=== PATIENT | female | born 1995 | race Caucasian/White ===

== ENCOUNTER 2018-03-29 18:43 | Emergency (ER) | payer SELFPAY ==
[~2018-03-29] VITALS: Ht 160 cm; Wt 52.3 kg
[~2018-03-29 18:43] MED LIST: AMOXICILLIN500 MG OR; CEPHALEXIN500 MG PO; DEPO-PROVER150 MG/M1 IM; FERROUS SULF325 M1 PO; IBUPROFEN600 MG PO; LORTAB 5-325 MG1 TAB PO; MACRODANTIN100 MG PO; MIRALAX3350 N1 PO; NO MEDS; PENICILLN VK500 MG PO; PRENATAL1 TA1 PO; ULTRAM50 M1 PO; ZOFRAN ODT8 MG PO
[2018-03-29 19:48] LABS: HEMATOCRIT 38.3 % (37.0-47.0); HEMOGLOBIN 12.9 g/dl (12.0-16.0); IMMATURE GRANULOCYTES 0.2 % (0.0-5.0); MEAN CELL VOLUME 91.2 fL CALC (80.0-100.0); MEAN CORPUSCULAR HGB 30.7 pG CALC (26.0-32.0); MEAN CORPUSCULAR HGB CONC 33.7 g/L CALC (32.0-36.0); NEUT# 4.87 thou/uL (2.00-7.15); RED BLOOD COUNT 4.2 mill/uL (4.20-5.60); RED CELL DISTRI WIDTH 12.5 % (11.5-15.5)
[2018-03-29 19:49] LABS: URINE BILIRUBIN - DIPSTICK NEGATIVE (NEGATIVE); URINE BLOOD DIPSTICK LARGE (NEGATIVE); URINE COLOR YELLOW; URINE GLUCOSE - DIPSTICK NEGATIVE (NEGATIVE); URINE KETONE NEGATIVE (NEGATIVE); URINE LEUK ESTERASE NEGATIVE (NEGATIVE); URINE NITRITE - DIPSTICK NEGATIVE (Negative); URINE PH 6.5 (4.5-8.0); URINE PROTEIN - DIPSTICK 100 mg/dL (NEG-TRACE); URINE SPECIFIC GRAVITY 1.025; URINE UROBILINOGEN - DIPSTICK 0.2 E.U./dL (0.2)
[2018-03-29 19:58] LABS: URINE CLARITY HAZY; URINE WBC 0-2 WBC/hpf (0-5)
[2018-03-29 19:59] LABS: URINE SQUAMOUS EPITHELIAL CELL FEW EPI/hpf (0-FEW)
[2018-03-29 20:04] LABS: BILIRUBIN, TOTAL 0.3 mg/dL (0.0-1.4); BUN 14 mg/dL (7-17); BUN/CREATININE RATIO 16 (12-20 (CALC)); CHLORIDE 105 mmol/l (95-108); CREATININE 0.9 mg/dL (0.5-1.0); GFR > 60 ML/MIN (>=60 (CALC)); GFR FOR AFR.AMER. > 60 ML/MIN (>=60 (CALC)); POTASSIUM 3.7 mmol/l (3.5-5.1); SGOT/AST 27 u/l (14-36); SGPT/ALT 29 u/l (9-52)
[2018-03-29 20:19] LABS: ALBUMIN 4.8 g/dL (3.2-5.0); ALKALINE PHOSPHATASE 54 u/l (38-126); ANION GAP 12 (6-22 (CALC)); CARBON DIOXIDE 30 mmol/l (22-30); SODIUM 143 mmol/l (137-146)
[2018-03-29] MEDS ORDERED: INDOMETHACIN25 MG PO (20:31)
[2018-03-29 21:17] VITALS: BP 112/69
== END 2018-03-29 20:52 | disposition home or self-care (01) | DRG 195 ==
LOC: ED 18:43
PROVIDERS: Emergency Medicine
DX: R09.1 Pleurisy (principal)

== ENCOUNTER 2018-04-11 07:28 | Emergency (ER) | payer SELFPAY ==
[~2018-04-11] VITALS: Ht 160 cm; Wt 57.0 kg
[~2018-04-11 07:28] MED LIST changes: +INDOMETHACIN25 MG PO
[2018-04-11 07:58] LABS: HEMATOCRIT 38.4 % (37.0-47.0); HEMOGLOBIN 12.9 g/dl (12.0-16.0); IMMATURE GRANULOCYTES 0.3 % (0.0-5.0); MEAN CELL VOLUME 91.2 fL CALC (80.0-100.0); MEAN CORPUSCULAR HGB 30.6 pG CALC (26.0-32.0); MEAN CORPUSCULAR HGB CONC 33.6 g/L CALC (32.0-36.0); NEUT# 11.43 thou/uL (2.00-7.15); RED BLOOD COUNT 4.21 mill/uL (4.20-5.60); RED CELL DISTRI WIDTH 12.3 % (11.5-15.5)
[2018-04-11 08:10] LABS: ALBUMIN 4.7 g/dL (3.2-5.0); ALKALINE PHOSPHATASE 56 u/l (38-126); ANION GAP 14 (6-22 (CALC)); BILIRUBIN, TOTAL 0.6 mg/dL (0.0-1.4); BUN 14 mg/dL (7-17); BUN/CREATININE RATIO 20 (12-20 (CALC)); CARBON DIOXIDE 26 mmol/l (22-30); CHLORIDE 108 mmol/l (95-108); CREATININE 0.7 mg/dL (0.5-1.0); GFR > 60 ML/MIN (>=60 (CALC)); GFR FOR AFR.AMER. > 60 ML/MIN (>=60 (CALC)); SGOT/AST 31 u/l (14-36); SGPT/ALT 28 u/l (9-52); SODIUM 143 mmol/l (137-146); TOTAL PROTEIN 8.1 g/dL (6.3-8.2)
[2018-04-11 08:15] LABS: POTASSIUM 4.5 mmol/l (3.5-5.1)
[2018-04-11 09:43] LABS: URINE BILIRUBIN - DIPSTICK NEGATIVE (NEGATIVE); URINE BLOOD DIPSTICK NEGATIVE (NEGATIVE); URINE COLOR YELLOW; URINE GLUCOSE - DIPSTICK NEGATIVE (NEGATIVE); URINE KETONE NEGATIVE (NEGATIVE); URINE LEUK ESTERASE NEGATIVE (NEGATIVE); URINE NITRITE - DIPSTICK NEGATIVE (Negative); URINE PROTEIN - DIPSTICK NEGATIVE (NEG-TRACE); URINE UROBILINOGEN - DIPSTICK 0.2 E.U./dL (0.2)
[2018-04-11 09:45] LABS: URINE CLARITY CLEAR
[2018-04-11 10:12] VITALS: BP 103/55
== END 2018-04-11 10:14 | disposition home or self-care (01) | DRG 563 ==
LOC: ED 07:28
PROVIDERS: Family Medicine
DX: S29.011A Strain of muscle and tendon of front wall of thorax, initial encounter (principal); X58.XXXA Exposure to other specified factors, initial encounter

== ENCOUNTER 2018-06-15 09:19 | Emergency (ER) | payer SELFPAY ==
[~2018-06-15] VITALS: Ht 160 cm; Wt 60.0 kg
[2018-06-15 09:53] LABS: HEMATOCRIT 36.3 % (37.0-47.0); HEMOGLOBIN 12.6 g/dl (12.0-16.0); IMMATURE GRANULOCYTES 0.1 % (0.0-5.0); MEAN CELL VOLUME 89.9 fL CALC (80.0-100.0); MEAN CORPUSCULAR HGB 31.2 pG CALC (26.0-32.0); MEAN CORPUSCULAR HGB CONC 34.7 g/L CALC (32.0-36.0); NEUT# 3.81 thou/uL (2.00-7.15); RED BLOOD COUNT 4.04 mill/uL (4.20-5.60); RED CELL DISTRI WIDTH 12.6 % (11.5-15.5)
[2018-06-15 10:28] LABS: ALBUMIN 4.2 g/dL (3.2-5.0); ALKALINE PHOSPHATASE 47 u/l (38-126); ANION GAP 11 (6-22 (CALC)); BILIRUBIN, TOTAL 0.6 mg/dL (0.0-1.4); BUN 16 mg/dL (7-17); BUN/CREATININE RATIO 23 (12-20 (CALC)); CARBON DIOXIDE 23 mmol/l (22-30); CHLORIDE 110 mmol/l (95-108); CREATININE 0.7 mg/dL (0.5-1.0); GFR > 60 ML/MIN (>=60 (CALC)); GFR FOR AFR.AMER. > 60 ML/MIN (>=60 (CALC)); LIPASE 73 u/l (23-300); POTASSIUM 4.1 mmol/l (3.5-5.1); SGOT/AST 27 u/l (14-36); SODIUM 140 mmol/l (137-146); TOTAL PROTEIN 7.1 g/dL (6.3-8.2)
[2018-06-15 11:00] LABS: URINE BILIRUBIN - DIPSTICK NEGATIVE (NEGATIVE); URINE BLOOD DIPSTICK NEGATIVE (NEGATIVE); URINE COLOR YELLOW; URINE GLUCOSE - DIPSTICK NEGATIVE (NEGATIVE); URINE KETONE NEGATIVE (NEGATIVE); URINE LEUK ESTERASE NEGATIVE (NEGATIVE); URINE NITRITE - DIPSTICK NEGATIVE (Negative); URINE PH 5.5 (4.5-8.0); URINE PROTEIN - DIPSTICK NEGATIVE (NEG-TRACE); URINE SPECIFIC GRAVITY >=1.030; URINE UROBILINOGEN - DIPSTICK 0.2 E.U./dL (0.2)
[2018-06-15 11:10] LABS: URINE CLARITY CLEAR
[2018-06-15 11:22] VITALS: BP 121/56
== END 2018-06-15 11:30 | disposition home or self-care (01) | DRG 392 ==
LOC: ED 09:19
PROVIDERS: Family Medicine
DX: R10.32 Left lower quadrant pain (principal); R10.31 Right lower quadrant pain
CPT/HCPCS: Q9967

== ENCOUNTER 2018-09-09 10:51 | Emergency (ER) | payer SELFPAY ==
[~2018-09-09] VITALS: Ht 160 cm; Wt 52.0 kg
[2018-09-09 12:36] LABS: URINE BILIRUBIN - DIPSTICK NEGATIVE (NEGATIVE); URINE BLOOD DIPSTICK TRACE-LYSED (NEGATIVE); URINE COLOR YELLOW; URINE GLUCOSE - DIPSTICK NEGATIVE (NEGATIVE); URINE KETONE NEGATIVE (NEGATIVE); URINE NITRITE - DIPSTICK NEGATIVE (Negative); URINE PROTEIN - DIPSTICK NEGATIVE (NEG-TRACE); URINE SPECIFIC GRAVITY 1.015; URINE UROBILINOGEN - DIPSTICK 0.2 E.U./dL (0.2)
[2018-09-09 12:39] LABS: URINE LEUK ESTERASE SMALL (NEGATIVE)
[2018-09-09 12:45] LABS: URINE BACTERIA FEW hpf; URINE EPITHELIAL CELLS FEW EPI/hpf (0-FEW); URINE RBC 0-2 RBC/hpf (0-5)
[2018-09-09] MEDS ORDERED: CIPROFLOXACN500 MG PO (13:32)
[2018-09-09 13:34] VITALS: BP 116/67
== END 2018-09-09 13:41 | disposition home or self-care (01) | DRG 690 ==
LOC: ED 10:51
PROVIDERS: Emergency Medicine
DX: N39.0 Urinary tract infection, site not specified (principal); B95.7 Other staphylococcus as the cause of diseases classified elsewhere; Z87.440 Personal history of urinary (tract) infections

== ENCOUNTER 2019-02-19 08:42 | Emergency (ER) | payer SELFPAY ==
[~2019-02-19] VITALS: Ht 160 cm; Wt 54.0 kg
[~2019-02-19 08:42] MED LIST changes: +CIPROFLOXACN500 MG PO
[2019-02-19] MEDS ORDERED: PRENATA3 PO (08:58)
[2019-02-19 09:16] LABS: HEMATOCRIT 37.3 % (37.0-47.0); HEMOGLOBIN 12.8 g/dl (12.0-16.0); IMMATURE GRANULOCYTES 0.4 % (0.0-5.0); MEAN CORPUSCULAR HGB 30.2 pG CALC (26.0-32.0); MEAN CORPUSCULAR HGB CONC 34.3 g/L CALC (32.0-36.0); NEUT# 7.26 thou/uL (2.00-7.15); RED BLOOD COUNT 4.24 mill/uL (4.20-5.60)
[2019-02-19 09:24] LABS: URINE BLOOD DIPSTICK NEGATIVE (NEGATIVE); URINE COLOR YELLOW; URINE GLUCOSE - DIPSTICK NEGATIVE (NEGATIVE); URINE KETONE >=80 mg/dL (NEGATIVE); URINE LEUK ESTERASE NEGATIVE (NEGATIVE); URINE NITRITE - DIPSTICK NEGATIVE (Negative); URINE PROTEIN - DIPSTICK TRACE mg/dL (NEG-TRACE); URINE SPECIFIC GRAVITY 1.025; URINE UROBILINOGEN - DIPSTICK 0.2 E.U./dL (0.2)
[2019-02-19 09:27] LABS: ALBUMIN 4.8 g/dL (3.2-5.0); ALKALINE PHOSPHATASE 58 u/l (38-126); ANION GAP 14 (6-22 (CALC)); BILIRUBIN, TOTAL 0.6 mg/dL (0.0-1.4); BUN 11 mg/dL (7-17); BUN/CREATININE RATIO 19 (12-20 (CALC)); CARBON DIOXIDE 25 mmol/l (22-30); CHLORIDE 103 mmol/l (95-108); CREATININE 0.6 mg/dL (0.5-1.0); GFR > 60 ML/MIN (>=60 (CALC)); GFR FOR AFR.AMER. > 60 ML/MIN (>=60 (CALC)); LIPASE 67 u/l (23-300); POTASSIUM 3.9 mmol/l (3.5-5.1); SGOT/AST 21 u/l (14-36); SODIUM 137 mmol/l (137-146); TOTAL PROTEIN 7.8 g/dL (6.3-8.2)
[2019-02-19 09:39] LABS: URINE BILIRUBIN - DIPSTICK SMALL (NEGATIVE)
[2019-02-19] MEDS ORDERED: REGLAN10 MG PO (09:42)
[2019-02-19] MEDS ORDERED: PHENERGAN25 MG/TAB PO (09:42)
[2019-02-19 10:49] VITALS: BP 108/56
== END 2019-02-19 10:57 | disposition home or self-care (01) | DRG 833 ==
LOC: ED 08:42
PROVIDERS: Family Medicine
DX: O99.611 Diseases of the digestive system complicating pregnancy, first trimester (principal); K52.9 Noninfective gastroenteritis and colitis, unspecified; Z3A.01 Less than 8 weeks gestation of pregnancy

== ENCOUNTER 2019-07-13 | Emergency (ER) | payer OTHER ==
[~2019-07-13] MED LIST changes: +PHENERGAN25 MG/TAB PO; +PRENATA3 PO; +REGLAN10 MG PO
[2019-07-13 07:33] LABS: URINE BILIRUBIN - DIPSTICK NEGATIVE (NEGATIVE); URINE BLOOD DIPSTICK LARGE (NEGATIVE); URINE COLOR YELLOW; URINE GLUCOSE - DIPSTICK NEGATIVE (NEGATIVE); URINE KETONE NEGATIVE (NEGATIVE); URINE LEUK ESTERASE TRACE (NEGATIVE); URINE NITRITE - DIPSTICK NEGATIVE (Negative); URINE PROTEIN - DIPSTICK TRACE mg/dL (NEG-TRACE); URINE SPECIFIC GRAVITY 1.025; URINE UROBILINOGEN - DIPSTICK 0.2 E.U./dL (0.2)
[2019-07-13 07:45] LABS: URINE BACTERIA MANY hpf; URINE RBC 25-50 RBC/hpf (0-5); URINE SQUAMOUS EPITHELIAL CELL MODERATE EPI/hpf (0-FEW)
[2019-07-13 08:15] LABS: HEMATOCRIT 32.6 % (37.0-47.0); HEMOGLOBIN 10.9 g/dl (12.0-16.0); MEAN CORPUSCULAR HGB 31.3 pG CALC (26.0-32.0); MEAN CORPUSCULAR HGB CONC 33.4 g/L CALC (32.0-36.0); NEUT# 8.63 thou/uL (2.00-7.15); RED BLOOD COUNT 3.48 mill/uL (4.20-5.60); RED CELL DISTRI WIDTH 12.4 % (11.5-15.5)
[2019-07-13 08:16] LABS: MEAN CELL VOLUME 93.7 fL CALC (80.0-100.0)
[2019-07-13 08:38] LABS: ALBUMIN 3.9 g/dL (3.2-5.0); ALKALINE PHOSPHATASE 87 u/l (38-126); ANION GAP 13 (6-22 (CALC)); BILIRUBIN, TOTAL 0.4 mg/dL (0.0-1.4); BUN 11 mg/dL (7-17); BUN/CREATININE RATIO 23 (12-20 (CALC)); CARBON DIOXIDE 22 mmol/l (22-30); CHLORIDE 104 mmol/l (95-108); CREATININE 0.5 mg/dL (0.5-1.0); GFR > 60 ML/MIN (>=60 (CALC)); GFR FOR AFR.AMER. > 60 ML/MIN (>=60 (CALC)); POTASSIUM 3.8 mmol/l (3.5-5.1); SGOT/AST 25 u/l (14-36); SODIUM 134 mmol/l (137-146); TOTAL PROTEIN 7.1 g/dL (6.3-8.2)
[2019-07-13] MEDS ORDERED: ONDANSETRON4 MG PO (09:02)
[2019-07-13] MEDS ORDERED: MACROBID100 MG PO (09:02)
== END 2019-07-13 09:18 | disposition home or self-care (01) ==
PROVIDERS: Emergency Medicine
DX: O23.03 Infections of kidney in pregnancy, third trimester (principal); N13.6 Pyonephrosis; Z3A.29 29 weeks gestation of pregnancy